=== PATIENT | male | born 1985 | race Caucasian/White ===

== ENCOUNTER 2019-01-22 22:18 | Emergency (ER) | payer BC ==
[2019-01-22 22:35] VITALS: BP 155/104
[2019-01-22] MEDS ORDERED: NORMAL SALINE 1000 ML 1,000 ML IV ONE (22:56)
--- NOTE | 2019-01-22 23:03 | ER Document Report ---
ED Medical Screen (RME) - General Chief Complaint: Irregular Pulse Stated Complaint: SHORTNESS OF BREATH,RAPID HEARTBEAT Time Seen by Provider: 01/22/19 22:55 Notes: 33-year-old male chief complaint of episodes where he feels tightness in his c hest, feels like he cannot take a deep breath, gets diaphoretic, and feels weak. He also feels like his heart is racing. He also states he gets intermittently lightheaded. He states this is been going on for 4 days intermittently but much worse today. He denies vomiting, fever, passing out. He denies any prescribed medications. He reports he smokes but he denies recreational drugs or frequent alcohol. TRAVEL OUTSIDE OF THE [place] IN LAST 30 DAYS: No - Related Data Allergies/Adverse Reactions: No Known Allergies Allergy (Unverified 12/13/14 15:45) Past Medical History - Immunizations Immunizations up to date: No Hx Diphtheria, Pertussis, Tetanus Vaccination: No Physical Exam - Vital signs Vitals: Temp Pulse Resp BP Pulse Ox 97.9 F 106 H 18 155/104 H 100 01/22/19 22:34 01/22/19 22:34 01/22/19 22:34 01/22/19 22:34 01/22/19 22:34 - Respiratory Respiratory status: No respiratory distress Breath sounds: Normal. No: Decreased air movement, Wheezing - Cardiovascular Rhythm: Regular, Tachycardia Heart sounds: Normal auscultation, S1 appreciated, S2 appreciated Course - Re-evaluation Re-evalutation: On exam patient has a wet shirt but he is not currently diaphoretic, he is tachycardic. He does not appear anxious at this time. I have greeted and performed a rapid initial assessment of this patient. A comprehensive ED assessment and evaluation of the patient, analysis of test results and completion of the medical decision making process will be conducted by additional ED providers. - Vital Signs Vital signs: Temp Pulse Resp BP Pulse Ox 97.9 F 106 H 18 155/104 H 100 01/22/19 22:34 01/22/19 22:34 01/22/19 22:34 01/22/19 22:34 01/22/19 22:34
[2019-01-22 23:27] LABS: ABSOLUTE BASOPHILS # (AUTO) 0.1 10^3/uL (0.0-0.2); ABSOLUTE LYMPHOCYTES (AUTO) 2.5 10^3/uL (0.5-4.7); ABSOLUTE MONOCYTES (AUTO) 0.8 10^3/uL (0.1-1.4); ABSOLUTE NEUT (AUTO) 8.2 10^3/uL (1.7-8.2); BASOPHILS % (AUTO) 0.6 % (0-2); EOSINOPHILS % (AUTO) 0.4 % (0-6); HEMATOCRIT 46.1 % (37.9-51.0); LYMPHOCYTES % (AUTO) 21.3 % (13-45); MEAN CORPUSCULAR HEMOGLOBIN 29.7 pg (27.0-33.4); MEAN CORPUSCULAR HGB CONC 34.6 g/dL (32.0-36.0); MEAN CORPUSCULAR VOLUME 86 fl (80-97); MONOCYTES % (AUTO) 7.1 % (3-13); PLATELET COUNT 368 10^3/uL (150-450); RED BLOOD COUNT 5.39 10^6/uL (4.35-5.55); SEGMENTED NEUTROPHILS % (AUTO) 70.6 % (42-78); TOTAL CELLS COUNTED % (AUTO) 100 %; WHITE BLOOD COUNT 11.6 10^3/uL (4.0-10.5)
[2019-01-22 23:42] LABS: ALBUMIN 5.1 g/dL (3.5-5.0); ALKALINE PHOSPHATASE 93 U/L (38-126); ANION GAP 13 (5-19); ASPARTATE AMINO TRANSFERASE 30 U/L (17-59); BILIRUBIN,DIRECT 0.3 mg/dL (0.0-0.4); BILIRUBIN,TOTAL 0.6 mg/dL (0.2-1.3); BLOOD UREA NITROGEN 13 mg/dL (7-20); CALCIUM 10.3 mg/dL (8.4-10.2); CARBON DIOXIDE 24 mmol/L (22-30); CHLORIDE 103 mmol/L (98-107); CREATINE KINASE 75 U/L (55-170); GLUCOSE 108 mg/dL (75-110); POTASSIUM 3.7 mmol/L (3.6-5.0); TOTAL PROTEIN 8.5 g/dL (6.3-8.2)
--- NOTE | 2019-01-22 23:47 | RADIOLOGY REPORT (SQ) ---
XR CHEST 2 VIEWS EXAM DATE: 01/22/2019 10:55 PM CDT HISTORY: Shortness of breath. COMPARISON: None. FINDINGS: The heart size is within normal limits. No consolidation, pleural effusion, or pneumothorax is seen. The bony thorax is intact. IMPRESSION: No evidence of acute cardiopulmonary disease.
[2019-01-23] MEDS ORDERED: LORAZEPAM 0.5 MG TABLET PO ONE (00:23)
--- NOTE | 2019-01-23 00:48 | EKG REPORT ---
SEVERITY:- ABNORMAL ECG - SINUS TACHYCARDIA LEFT AXIS DEVIATION PROBABLE LEFT VENTRICULAR HYPERTROPHY : Confirmed by: Samuel Fierro 23-Jan-2019 00:47:56
--- NOTE | 2019-01-23 02:09 | ER Document Report ---
ED General - General Chief Complaint: Irregular Pulse Stated Complaint: SHORTNESS OF BREATH,RAPID HEARTBEAT Time Seen by Provider: 01/22/19 22:55 TRAVEL OUTSIDE OF THE [place] IN LAST 30 DAYS: No - HPI Notes: This is a 33-year-old gentleman who presents today with a complaint of anxiety attacks and palpitations. Patient states that he has been having intermittent episodes of anxiety attacks for some time now. He describes palpitations also intermittently. He drinks coffee daily. He denies any chest pain. He denies any fever or chills. He denies any suicidal homicidal ideation. He states that like to have something to help with anxiety attacks. He denies any recent travel. No chest pain. Describes symptoms as moderate. - Related Data Allergies/Adverse Reactions: No Known Allergies Allergy (Unverified 12/13/14 15:45) Past Medical History - Social History Smoking Status: Never Smoker Family History: Reviewed & Not Pertinent Patient has suicidal ideation: No Patient has homicidal ideation: No - Immunizations Immunizations up to date: No Hx Diphtheria, Pertussis, Tetanus Vaccination: No Review of Systems - Review of Systems Cardiovascular: Palpitations, Heart racing. denies: Chest pain, Orthopnea, Dyspnea Respiratory: denies: Cough, Short of breath Neurological/Psychological: Anxiety. denies: Homicidal ideation, Headaches, Speech impairment, Numbness, Suicidal ideation -: Yes All other systems reviewed and negative Physical Exam - Vital signs Vitals: Temp Pulse Resp BP Pulse Ox 97.9 F 106 H 18 155/104 H 100 01/22/19 22:34 01/22/19 22:34 01/22/19 22:34 01/22/19 22:34 01/22/19 22:34 - General General appearance: Appears well, Alert - HEENT Head: Normocephalic, Atraumatic Eyes: Normal Pupils: PERRL - Respiratory Respiratory status: No respiratory distress Chest status: Nontender Breath sounds: Normal Chest palpation: Normal - Cardiovascular Rhythm: Regular Heart sounds: Normal auscultation Murmur: No - Abdominal Inspection: Normal Distension: No distension Bowel sounds: Normal Tenderness: Nontender Organomegaly: No organomegaly - Extremities General upper extremity: Normal inspection, Nontender, Normal color, Normal ROM, Normal temperature General lower extremity: Normal inspection, Nontender, Normal color, Normal ROM, Normal temperature, Normal weight bearing. No: Cele's sign - Neurological Neuro grossly intact: Yes Cognition: Normal Orientation: AAOx4 [place] Coma Scale Eye Opening: Spontaneous Aric Coma Scale Verbal: Oriented Aric Coma Scale Motor: Obeys Commands [place] Coma Scale Total: 15 Speech: Normal Motor strength normal: LUE, RUE, LLE, RLE Sensory: Normal - Psychological Associated symptoms: Normal affect - Patient appears anxious. Denies suicidal homicidal ideation., Anxious Course - Re-evaluation Re-evalutation: 01/23/19 02:06 Differential diagnosis includes anxiety versus caffeine induced palpitations versus electrolyte abnormalities versus arrhythmia. There is no clinical suspicion for pulmonary embolus. EKG shows sinus tachycardia at 110 bpm. Right axis deviation. Normal intervals. No acute injury pattern. 0204 Patient reevaluated. He feels much better. Labs and imaging reviewed and unremarkable. He is stable for discharge. We will put him on Vistaril for anxiety. Counseled to reduce his caffeine intake. Follow-up discussed. - Vital Signs Vital signs: Temp Pulse Resp BP Pulse Ox 97.9 F 106 H 18 155/104 H 100 01/22/19 22:34 01/22/19 22:34 01/22/19 22:34 01/22/19 22:34 01/22/19 22:34 - Laboratory Result Diagrams: 01/22/19 23:10 01/22/19 23:10 Laboratory results interpreted by me: 01/22/19 01/22/19 23:10 23:10 WBC 11.6 H Calcium 10.3 H Total Protein 8.5 H Albumin 5.1 H Discharge - Discharge Clinical Impression: Anxiety, Palpitations Condition: Good Disposition: HOME, SELF-CARE Instructions: Palpitations (Irregular or Rapid Heartrate) ([facility]), Anxiety ([facility]) Additional Instructions: Reduce caffeine in your diet as discussed. Follow-up with your doctor. Return if worse or concerns. Prescriptions: Hydroxyzine Pamoate [Vistaril 25 mg Capsule] 25 mg PO TID PRN #30 capsule PRN Reason: Anxiety Referrals: [facility] [NO LOCAL MD] - Follow up as needed
[2019-01-23 02:36] LABS: APPEARANCE,URINE CLEAR; BILIRUBIN,URINE NEGATIVE (NEGATIVE); COLOR,URINE YELLOW; GLUCOSE, URINE NEGATIVE (NEGATIVE); KETONES,URINE TRACE mg/dL (NEGATIVE); LEUKOCYTE ESTERASE,URINE NEGATIVE (NEGATIVE); NITRITE,URINE NEGATIVE (NEGATIVE); PROTEIN,URINE NEGATIVE (NEGATIVE); URINE SPECIFIC GRAVITY 1.023
[2019-01-23 02:52] LABS: URINE AMPHETAMINES SCREEN NEGATIVE; URINE BARBITURATES SCREEN NEGATIVE; URINE BENZODIAZEPINES SCREEN NEGATIVE; URINE COCAINE SCREEN NEGATIVE; URINE MARIJUANA (THC) SCREEN UNCONFIRMED POSITIVE; URINE METHADONE SCREEN NEGATIVE; URINE PHENCYCLIDINE SCREEN NEGATIVE
== END 2019-01-23 03:17 | disposition home or self-care (01) ==
LOC: ER 22:18
DX: F41.9 Anxiety disorder, unspecified (principal); R00.2 Palpitations
CPT/HCPCS: 93005; 36415; 82550; 84443; 85025; 80053; 81001; 84484; 80307; 71046; 93010; J7030; 96360; 99284

== ENCOUNTER 2019-12-01 01:17 | Emergency (ER) | payer BC, MEDICAID ==
[2019-12-01] MEDS ORDERED: IBUPROFEN 800 MG TABLET PO ONE (01:55)
[2019-12-01] MEDS ORDERED: HYDROCODONE/ACETAMINOPHEN 5-325 MG (6 TAB/ER DISP) PO PRN (03:14)
[2019-12-01] MEDS ORDERED: PENICILLIN V POTASSIUM 500 MG TABLET PO ONE (03:14)
--- NOTE | 2019-12-01 03:17 | ER Document Report ---
HPI - HPI Time Seen by Provider: 12/01/19 02:44 Pain Level: 5 Context: Patient is a 34-year-old male that comes to the emergency department for chief complaint of dental pain. Patient states for the past 2 days he has had worsening pain in his right upper jaw with subtle swelling of the face. He denies sore throat, neck pain, fever, or any other complaints. Patient has a dental appointment tomorrow, he has known dental caries and has had dental work and extractions in the past. He denies any daily medications. He denies any past medical history otherwise. Past Medical History - General Information source: Patient - Social History Smoking Status: Never Smoker Frequency of alcohol use: None Drug Abuse: None Lives with: Family Family History: Reviewed & Not Pertinent Patient has homicidal ideation: No - Immunizations Immunizations up to date: No Hx Diphtheria, Pertussis, Tetanus Vaccination: No Vertical Provider Document - CONSTITUTIONAL General Appearance: WD/WN, No Apparent Distress - INFECTION CONTROL TRAVEL OUTSIDE OF THE [place] IN LAST 30 DAYS: No - HEENT HEENT: Atraumatic, Normal ENT Exam - Normal ENT exam except for dental exam, see mouth diagram below. Pharyngeal exam unremarkable, patent airway, Normocephalic Mouth Diagram: 1 - Dental caries with surrounding erythema and tenderness, however there is no abscess noted, no other concerning findings except for some mild questionable swelling on the adjacent cheek/face area. - NECK Neck: Normal Inspection, Supple. negative: Lymphadenopathy-Left, Lymphadenopathy-Right - RESPIRATORY Respiratory: Breath Sounds Normal, No Respiratory Distress - CARDIOVASCULAR Cardiovascular: Regular Rate, Regular Rhythm - GI/ABDOMEN Gastrointestinal: Abdomen Soft, Abdomen Non-Tender. negative: Abdomen Tender - BACK Back: Normal Inspection - NEURO Level of Consciousness: Awake, Alert, Appropriate Motor/Sensory: No Motor Deficit, No Sensory Deficit - DERM Integumentary: Warm, Dry, No Rash Course - Re-evaluation Re-evalutation: Patient with dental caries, evidence of dental infection, but no evidence of secondary abscess or developing Manuel angina. No concerning findings otherwi se. Started on antibiotics, discussed dental follow-up and return precautions. Patient states understanding and agreement. - Vital Signs Vital signs: Temp Pulse Resp BP Pulse Ox 98.4 F 74 16 155/96 H 100 12/01/19 01:21 12/01/19 01:21 12/01/19 01:21 12/01/19 01:21 12/01/19 01:21 Discharge - Discharge Clinical Impression: Pain, dental, Dental infection Condition: Stable Disposition: HOME, SELF-CARE Instructions: Oral Narcotic Medication ([facility]) Additional Instructions: Your evaluation is consistent with a dental infection but no abscess is seen tonight. Take the antibiotics to completion, call your dentist for close follow-up and additional management. Return if you worsen including severe worsening swelling, difficulty swallowing or breathing, fever, or any other concerning symptoms. Prescriptions: Penicillin V Potassium [Penicillin Vk 500 mg Tablet] 500 mg PO BID #20 tablet Forms: Return to Work
[2019-12-01 06:42] VITALS: BP 140/86
== END 2019-12-01 03:25 | disposition home or self-care (01) ==
LOC: ER 01:17
DX: K04.7 Periapical abscess without sinus (principal); K02.9 Dental caries, unspecified
CPT/HCPCS: 99282; J3490 ×2